=== PATIENT | female | born 1970 | race Hispanic/Latino ===

== ENCOUNTER 2016-11-12 07:33 | Emergency (ER) | payer OTHER ==
[~2016-11-12] VITALS: Ht 160 cm; Wt 81.7 kg
[~2016-11-12 07:33] MED LIST: IBUPROFEN600 MG PO
[2016-11-12] MEDS ORDERED: KETOROLAC TROME10 MG PO (08:11)
== END 2016-11-12 09:00 | disposition home or self-care (01) ==
LOC: ED 07:33
DX: M25.571 Pain in right ankle and joints of right foot (principal); Z90.710 Acquired absence of both cervix and uterus; Z91.018 Allergy to other foods
CPT/HCPCS: 73610; 99283

== ENCOUNTER 2021-03-12 12:26 | Emergency (ER) | payer BC ==
[~2021-03-12] VITALS: Ht 160 cm; Wt 83.5 kg
[~2021-03-12 12:26] MED LIST changes: +KETOROLAC TROME10 MG PO
[2021-03-12] MEDS ORDERED: OXYCODONE HCL5 MG PO (18:01)
[2021-03-12] MEDS ORDERED: ONDANSETRON ODT8 MG PO (18:01)
== END 2021-03-12 18:26 | disposition home or self-care (01) ==
LOC: ED 12:26
DX: N20.0 Calculus of kidney (principal); D64.9 Anemia, unspecified; Z91.018 Allergy to other foods
CPT/HCPCS: 74176; 80053; 81001; 83690; 85025; 96374; 96375; 96376; 99284-25; G0480; J1885; J2405; J7030